=== PATIENT | male | born 1995 | race African-American/Black ===

== ENCOUNTER 2018-07-22 10:59 | Emergency (ER) | payer OTHER ==
[2018-07-22 11:39] VITALS: BP 124/78
--- NOTE | 2018-07-22 11:39 | Emergency Department Report ---
Blank Doc - Documentation Documentation: This is a 23-year-old male that presents with a dog bit to the left thigh. St ated it occurred about a week ago. Denies knowing if dog has rabies UTD. This initial assessment/diagnostic orders/clinical plan/treatment(s) is/are subject to change based on patient's health status, clinical progression and re- assessment by fellow clinical providers in the ED. Further treatment and workup at subsequent clinical providers discretion. Patient/guardians urged not to elope from the ED as their condition may be serious if not clinically assessed and managed. Initial orders include: 1- Patient sent to [facility] for further evaluation and treatment
[2018-07-22] MEDS ORDERED: AUGMENTIN 875 MG PO ONE (13:36)
[2018-07-22] MEDS ORDERED: RABAVERT RABIES VACCINE(PCEC) IM ONE (13:36)
[2018-07-22] MEDS ORDERED: BOOSTRIX IM ONE (13:36)
--- NOTE | 2018-07-22 13:51 | Emergency Department Report ---
ED Animal Bite HPI - General Chief Complaint: Animal Bite Stated Complaint: L LEG DOG BITE/PAIN Time Seen by Provider: 07/22/18 11:37 Source: patient Mode of arrival: Ambulatory Limitations: No Limitations - History of Present Illness Initial Comments: Patient is a 23-year-old gentleman who is presenting status post a dog bite. Patient states he was walking in his neighborhood and was bitten by what he believes was a pit bull. Patient states this dog is not known to him and does not know which neighbor the Doppler lost 2. The dog attacked him and bit him on his left thigh. Patient states this occurred almost a week ago. Patient has continued to have some bruising around the area of the bite over the bite is not bleeding is scabbed. His family urged him to come to the hospitalist service to the patient does not know the dog's rabies status. Patient states he has just have some mild achiness in area of the dog bite is a 2 out of 10 on a pain scale. Patient denies any fevers chills nausea vomiting diarrhea at this time. - Related Data Previous Rx's Medication Instructions Recorded Last Taken Type Amoxicillin/Potassium Clav 1 each PO BID #10 tablet 07/22/18 Unknown Rx [Augmentin 875-125 Tablet] Ibuprofen [Motrin 800 MG tab] 800 mg PO Q8HR PRN #10 tablet 07/22/18 Unknown Rx Allergies Allergy/AdvReac Type Severity Reaction Status Date / Time No Known Allergies Allergy Unverified 07/22/18 11:12 ED Review of Systems ROS: Stated complaint: L LEG DOG BITE/PAIN Other details as noted in HPI Comment: All other systems reviewed and negative ED Past Medical Hx - Past Medical History Previous Medical History?: No - Surgical History Past Surgical History?: No - Social History Smoking Status: Never Smoker Substance Use Type: None - Medications Home Medications: Home Medications Medication Instructions Recorded Confirmed Last Taken Type Amoxicillin/Potassium Clav 1 each PO BID #10 tablet 07/22/18 Unknown Rx [Augmentin 875-125 Tablet] Ibuprofen [Motrin 800 MG tab] 800 mg PO Q8HR PRN #10 tablet 07/22/18 Unknown Rx ED Physical Exam - General Limitations: No Limitations General appearance: alert, in no apparent distress - Head Head exam: Present: atraumatic, normocephalic - Eye Eye exam: Present: normal appearance - ENT ENT exam: Present: mucous membranes moist - Neck Neck exam: Present: normal inspection - Respiratory Respiratory exam: Present: normal lung sounds bilaterally. Absent: respiratory distress, wheezes, rales - Cardiovascular Cardiovascular Exam: Present: regular rate, normal rhythm. Absent: systolic murmur, diastolic murmur, rubs, gallop - GI/Abdominal GI/Abdominal exam: Present: soft, normal bowel sounds. Absent: distended, tenderness, guarding, rebound - Rectal Rectal exam: Present: deferred - Extremities Exam Extremities exam: Present: normal inspection - Back Exam Back exam: Present: normal inspection - Neurological Exam Neurological exam: Present: alert, oriented X3 - Psychiatric Psychiatric exam: Present: normal affect, normal mood - Skin Skin exam: Present: warm, dry, intact, normal color. Absent: rash - Expanded Skin Exam Expanded 1 - Patient has several scabbed wounds with some surrounding ecchymosis. ED Course Vital Signs 07/22/18 11:37 Temperature 98.3 F Pulse Rate 78 Respiratory 16 Rate Blood Pressure 124/78 O2 Sat by Pulse 99 Oximetry - Reevaluation(s) Reevaluation #1: 07/22/18 13:48 Patient will be started on a short course of Augmentin. We'll currently does not appear infected. Patient has Shot updated as well. Because the patient is still within the 4-5 day duration. For rabies rabies vaccine and immunoglobulin will be given today the patient be given outpatient referrals for his other rabies vaccine shots. Patient discharged in stable condition. Critical care attestation.: If time is entered above; I have spent that time in minutes in the direct care of this critically ill patient, excluding procedure time. ED Disposition Clinical Impression: Dog bite Qualifiers: Encounter type: initial encounter Qualified Code(s): W54.0XXA - Bitten by dog, initial encounter Disposition: - TO HOME OR SELFCARE Is pt being admited?: No Does the pt Need Aspirin: No Condition: Stable Instructions: Animal Bite (ED) Additional Instructions: Please see the centers that have rabies vaccine. Please see the schedule of rabies vaccines. Referrals: [facility] [Other] - 3-5 Days Time of Disposition: 13:50
== END 2018-07-22 14:22 | disposition home or self-care (01) ==
LOC: ED 10:59
DX: S71.152A Open bite, left thigh, initial encounter (principal); W54.0XXA Bitten by dog, initial encounter; Y93.89 Activity, other specified; Y92.89 Other specified places as the place of occurrence of the external cause; Y99.8 Other external cause status
CPT/HCPCS: 90375; 90471; 90472; 90675; 90715; 96372; 99282